=== PATIENT | female | born 1935 | race Two or more races ===

== ENCOUNTER 2020-05-14 09:44 | Outpatient (CLI) | payer OTHER, BC | END 2020-05-14 10:15 | disposition home or self-care (01) | LOC: OFIC 805 09:44 | PROVIDERS: ATTEND Otolaryngology | DX: H66.92 Otitis media, unspecified, left ear (principal); H92.02 Otalgia, left ear; H61.22 Impacted cerumen, left ear ==

== ENCOUNTER 2020-06-22 09:14 | Outpatient (CLI) | payer OTHER, BC | END 2020-06-22 12:47 | disposition home or self-care (01) | LOC: OFIC 805 09:14 | PROVIDERS: ATTEND Otolaryngology | DX: H92.02 Otalgia, left ear (principal); H60.8X2 Other otitis externa, left ear; R68.2 Dry mouth, unspecified ==

== ENCOUNTER 2020-12-24 04:30 | Day surgery (SDC) | payer OTHER, BC ==
[~2020-12-24 04:30] MED LIST: ATORVASTATIN CA10 MG PO; COZAAR50 MG PO; SYNTHROID75 MCG PO; VERELAN240 MG PO
== END 2020-12-24 10:19 | disposition home or self-care (01) ==
LOC: CIR.AMB 04:30
PROVIDERS: ATTEND Specialist
DX: D17.1 Benign lipomatous neoplasm of skin and subcutaneous tissue of trunk (principal); Z20.822 Contact with and (suspected) exposure to COVID-19

== ENCOUNTER 2021-10-19 05:45 | Day surgery (SDC) | payer OTHER, BC ==
[~2021-10-19 05:45] MED LIST changes: +SIMVAST PO
== END 2021-10-19 13:35 | disposition home or self-care (01) ==
LOC: CIR.AMB 05:45
PROVIDERS: ATTEND Specialist
DX: K40.30 Unilateral inguinal hernia, with obstruction, without gangrene, not specified as recurrent (principal); I10 Essential (primary) hypertension; E78.5 Hyperlipidemia, unspecified; E03.9 Hypothyroidism, unspecified; Z85.3 Personal history of malignant neoplasm of breast

== ENCOUNTER → 2022-01-10 08:18 | Outpatient (CLI) | payer OTHER, BC | END | disposition home or self-care (01) | LOC: LAB 08:18 | PROVIDERS: ATTEND Internal Medicine Cardiovascular Disease | DX: E11.9 Type 2 diabetes mellitus without complications (principal); E78.00 Pure hypercholesterolemia, unspecified; I11.9 Hypertensive heart disease without heart failure ==

== ENCOUNTER 2022-08-12 01:51 | Inpatient (IN) | payer OTHER ==
[~2022-08-12] VITALS: Ht 149.9 cm; Wt 40.8 kg
[2022-08-12] MEDS ORDERED: LEVOTHYROXINE25 MCG (02:16)
[2022-08-12] MEDS ORDERED: VERAPAMIL ER180 MG PO (02:16)
[2022-08-12] MEDS ORDERED: SIMVASTATIN5 MG (02:17)
[2022-08-12] MEDS ORDERED: COZAAR25 MG PO (02:17)
== END 2022-08-14 16:11 | disposition home or self-care (01) | DRG 378 ==
LOC: ER 01:51 → SEC-K 13:37 → SURH 08-13 08:53
PROVIDERS: ADMIT Specialist; ATTEND Specialist
PROC: BW21Y0Z Computerized Tomography (CT Scan) of Abdomen and Pelvis using Other Contrast, Unenhanced and Enhanced (ICD-10-PCS; principal; 2022-08-12)
PROC: 8E0ZXY6 Isolation (ICD-10-PCS; 2022-08-12)
DX: K62.5 Hemorrhage of anus and rectum (principal); A04.72 Enterocolitis due to Clostridium difficile, not specified as recurrent; I48.0 Paroxysmal atrial fibrillation; K59.00 Constipation, unspecified; Z20.822 Contact with and (suspected) exposure to COVID-19; Z90.12 Acquired absence of left breast and nipple